=== PATIENT | male | born 1980 ===

== ENCOUNTER 2017-11-15 13:22 | Emergency (ER) | payer BC ==
[~2017-11-15] VITALS: Ht 177.8 cm; Wt 127.3 kg
[2017-11-15 13:25] VITALS: BP 185/79; TEMP 97.7
[2017-11-15] MEDS ORDERED: PRILOSEC10 MG PO (13:38)
[2017-11-15] MEDS ORDERED: NORCO 325 MG-51 TAB PO (14:31)
[2017-11-15] MEDS ORDERED: CRUTCHES MC (14:33)
[2017-11-15 15:03] VITALS: PULSE 114
== END 2017-11-15 14:54 | disposition home or self-care (01) ==
LOC: COL.ER 13:22
DX: M23.92 Unspecified internal derangement of left knee (principal); W18.2XXA Fall in (into) shower or empty bathtub, initial encounter; Y92.009 Unspecified place in unspecified non-institutional (private) residence as the place of occurrence of the external cause
CPT/HCPCS: L1846